=== PATIENT | female | born 2000 | race Caucasian/White ===

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

== ENCOUNTER 2024-01-15 06:00 | Outpatient (RCR) | payer BC, SELFPAY | END 2024-01-21 23:59 | disposition home or self-care (01) | LOC: MPT 06:00 | PROVIDERS: Visit Provider Orthopaedic Surgery | DX: M25.561 Pain in right knee (principal) | CPT/HCPCS: 97110; 97161; G0283 ==

== ENCOUNTER 2024-01-22 06:00 | Outpatient (RCR) | payer BC, SELFPAY | END 2024-02-20 23:59 | disposition home or self-care (01) | LOC: MPT 06:00 | PROVIDERS: Visit Provider Orthopaedic Surgery | DX: M25.561 Pain in right knee (principal) | CPT/HCPCS: 97110; G0283 ==

== ENCOUNTER 2024-02-21 06:00 | Outpatient (RCR) | payer BC, SELFPAY | END 2024-03-19 23:59 | disposition home or self-care (01) | LOC: MPT 06:00 | PROVIDERS: Visit Provider Orthopaedic Surgery | DX: M25.561 Pain in right knee (principal) | CPT/HCPCS: 97110; G0283 ==